=== PATIENT | male | born 1980 | race Caucasian/White ===

== ENCOUNTER 2023-05-05 11:51 | Emergency (ER) | payer OTHER, SELFPAY ==
[2023-05-05 11:55] VITALS: BP 141/63; PULSE 76; RESP 18; TEMP 36.7; O2SAT 98; BMI 22.2
--- NOTE | 2023-05-05 12:02 | PC.NURSE ---
PT STATES WAS INPATIENT AT [facility] FOR ETOH WITHDRAW. PT STATES WAS ADMITTED FOR 2 DAYS ANDS RELEASED 2 DAYS AGO AND STATES EVERY SINCE DC PT HAS BEEN UNABLE TO MOVE LEFT WRIST INDEPENDENTLY. PT STATES SLIGHT NUMBNESS TO LEFT HAND. PT HAS STRONG RADIAL PULSES UPON PALPITATION. PT DENIES PAIN
--- NOTE | 2023-05-05 15:06 | ED.UPPEXIN1 ---
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 The patient denies any injuries or fall He denies any other complaints or any specific weakness in any other part of the body Related Data Home Medications Medication Instructions Recorded Confirmed citalopram 10 mg tablet (Celexa) 10 mg PO DAILY 05/05/23 05/05/23 naltrexone 50 mg tablet 50 mg PO DAILY 05/05/23 05/05/23 Previous Rx's Medication Instructions Recorded prednisone 20 mg tablet 40 mg (2 x 20 mg) PO DAILY 5 days 05/05/23 #10 tabs Allergies Allergy/AdvReac Type Severity Reaction Status Date / Time No Known Drug Allergies Allergy Verified 05/05/23 12:01 Review of Systems ROS Status of ROS 10 or more systems reviewed and unremarkable except as noted in history and below PFSH [facility] Social History Smoking status: Never smoker Exam Narrative Exam Narrative: vitals reviewed as well as nurse note Eye: Pupils are equal, round and EOMI. No scleral icterus. Ears, Nose, Mouth, and Throat: TM are clear, no nasal mucosal hypertrophy. Oral mucosa is moist, no posterior oropharynx erythema, uvula is mid-line Cardiovascular: Regular Rate and Rhythm without murmur, gallop or rub. Respiratory: No accessory muscle use or respiratory distress. Lungs are clear to auscultation, no wheezing, rales or rhonchi Chest Wall: no tenderness Back: No midline thoracic or lumbar vertebral tenderness. No CVA tenderness Musculoskeletal: normal ROM, no calf or popliteal tenderness, no lower extremity edema/swelling GI: Abdomen is soft, non-distended. Normal bowel sounds. No masses appreciated. No tenderness to palpation. No rebound, guarding, or rigidity noted. Neurological: A&O x4. No cranial nerve dysfunction observed. No truncal ataxia. It was noted that the patient not able to extend his wrist as well as the hand. He was still having the flexion preserved. The patient also was noted to have numbness and tingling around the thumb. On the same hand Psychiatric: Cooperative and interactive. Normal mood and affect. Constitutional Vital Signs, click to edit/add: Last Vital Signs Temp 98.0 F 05/05/23 11:55 Pulse 76 05/05/23 11:55 Resp 18 05/05/23 11:55 BP 141/63 05/05/23 11:55 Pulse Ox 98 05/05/23 11:55 Course Vital Signs Vital signs: Vital Signs Temperature 98.0 F 05/05/23 11:55 Pulse Rate 76 05/05/23 11:55 Respiratory Rate 18 05/05/23 11:55 Blood Pressure 141/63 05/05/23 11:55 Pulse Oximetry 98 05/05/23 11:55 Temperature 98.0 F 05/05/23 11:55 Pulse Rate 76 05/05/23 11:55 Respiratory Rate 18 05/05/23 11:55 Blood Pressure 141/63 05/05/23 11:55 Pulse Oximetry 98 05/05/23 11:55 MDM - Extremity Injury (Upper) MDM Narrative Medical decision making narrative: The patient with a typical radial nerve palsy, he was started on prednisone and referred to his primary care doctor for neurology assessment The patient is to follow up with primary care physician in next 2-3 days or to return to the emergency department should any of the signs or symptoms worsen or new symptoms develop. The patient agrees with the following Diagnosis and Treatment plan and the patient will be discharged home. Discharge Plan Discharge Chief Complaint: Extremity Injury, Upper Clinical Impression: Left wrist drop Patient Disposition: Home, Self-Care Time of Disposition Decision: 12:17 Mode of Transportation: Private Vehicle Prescriptions / Home Meds: New prednisone 20 mg tablet 40 mg PO DAILY 5 Days Qty: 10 0RF No Action citalopram [Celexa] 10 mg tablet 10 mg PO DAILY naltrexone 50 mg tablet 50 mg PO DAILY Instructions: Radial Nerve Palsy (ED) Stand Alone Forms: Portal Instructions Referrals: Shaikh Horn MD [Physician] - 1 week Discharge Date/Time: 05/05/23 12:31
== END 2023-05-05 12:31 | disposition home or self-care (01) ==
PROVIDERS: Emergency Provider Emergency Medicine; PCP Family Medicine
DX: M21.332 Wrist drop, left wrist (principal); Z79.899 Other long term (current) drug therapy
CPT/HCPCS: 99283